=== PATIENT | female | born 1990 | race Asian ===

== ENCOUNTER 2020-06-08 18:15 | Inpatient (IN) ==
[2020-06-08] MEDS ORDERED: Lactated Ringers 1000 ml BAG 1,000 ML IV ONE (19:33)
[2020-06-08] MEDS ORDERED: Dinoprostone 10 MG VAG.SUPP VAGINAL ONE (19:33)
[2020-06-08] MEDS ORDERED: Buffered Lidocaine 1% SYRIN 1 ml INTRADERM ONE (19:33)
[2020-06-08 20:33] LABS: Urine Benzodiazepine Screen None Detected (None Detect); Urine Cannabinoids Screen None Detected (None Detect); Urine Opiates Screen None Detected (None Detect)
[2020-06-08] MEDS ORDERED: Calcium Carb (TUMS) 500 mg CHEW TAB PO PRN (23:03)
[2020-06-08] MEDS ORDERED: Morphine 10 MG/ML VIAL (1 ml) IV ONE (23:04)
[2020-06-08] MEDS ORDERED: Promethazine INJ(RESTRICTED) 25 MG/ML 1 ml VIAL IV PRN (23:04)
[2020-06-08 23:48] LABS: ABS Eosinophils 0.1 10^3/ul (0-0.6); ABS Lymphocytes 2.5 10^3/ul (1.0-4.8); ABS Monocytes 0.9 10^3/ul (0-0.8); ABS Neutrophils 5.4 10^3/ul (1.5-7.7); Eosinophil % 1.3 %; Hematocrit 32 % (35-47); Hemoglobin 10.3 g/dL (12.0-16.0); Lymphocyte % 27.3 %; Mean Corpuscular HGB Conc 32 g/dL (31-36); Mean Corpuscular Hemoglobin 25 pg (27-31); Mean Corpuscular Volume 76 fL (80-97); Mean Platelet Volume 9.6 fL (7.4-10.4); Platelet Count 242 10^3/uL (150-450); Red Cell Distribution Width 16 % (10-15)
[2020-06-09] MEDS ORDERED: Morphine 10 MG/ML VIAL (1 ml) IV ONE (05:44)
[2020-06-09] MEDS ORDERED: Promethazine INJ(RESTRICTED) 25 MG/ML 1 ml VIAL IV PRN (05:44)
[2020-06-09] MEDS ORDERED: Morphine 10 MG/ML VIAL (1 ml) ONE (05:50)
[2020-06-09] MEDS ORDERED: OBEPIDURAL 250 ML EPIDURAL ONE (09:49)
[2020-06-09] MEDS ORDERED: Sodium Citrate/Citric Acid LIQ 15 ML UDC PO PRN (10:14)
[2020-06-09] MEDS ORDERED: Lactated Ringers 1000 ml BAG 1,000 ML IV ONE (10:14)
[2020-06-09] MEDS: Lactated Ringers 1000 ml BAG 1,000 ML IV SCH ×4 (10:20→20:30)
[2020-06-09] MEDS ORDERED: Lactated Ringers 1000 ml BAG 1,000 ML IV SCH (11:00)
[2020-06-09] MEDS ORDERED: OBEPIDURAL 250 ML EPIDURAL SCH (11:00)
[2020-06-09] MEDS: Oxytocin in LR 20 UNITS/1,000 ML BAG IVPB SCH (11:47)
[2020-06-09 13:21] LABS: Urine Appearance Clear; Urine Bilirubin Negative (Negative); Urine Blood Negative (Negative); Urine Color Yellow; Urine Glucose Negative (Negative); Urine Ketones Negative (Negative); Urine Nitrite Negative (Negative); Urine Protein Negative (Negative); Urine Specific Gravity 1.008 (1.002-1.030); Urine Urobilinogen Negative (Negative)
[2020-06-10] MEDS ORDERED: Sodium Citrate/Citric Acid LIQ 15 ML UDC ONE (02:40)
[2020-06-10] MEDS ORDERED: ceFOXitin 2 GM IVPREMIX 2 GM/50 ML BAG ONE (02:40)
[2020-06-10] MEDS ORDERED: Phenylephrine 40 mcg/mL 10mL (400mcg) SYRINGE ONE ×2 (03:09→04:13)
[2020-06-10] MEDS ORDERED: Oxytocin 10 UNITS/ML 1 ML VIAL ONE (03:09)
[2020-06-10] MEDS ORDERED: EPHEDrine (Pressors) 50 MG/ML VIAL ONE (03:09)
[2020-06-10] MEDS ORDERED: Ondansetron 4 mg VIAL 2 MG/ML 2 ml VIAL ONE (03:09)
[2020-06-10] MEDS ORDERED: Morphine PF AMP (0.5MG/ML) 5 MG/10 ML AMP ONE (03:11)
[2020-06-10] MEDS ORDERED: Bupivacaine-MPF SPINAL 7.5 MG/ML - 2ML AMP ONE (04:00)
[2020-06-10] MEDS ORDERED: Ondansetron 4 mg VIAL 2 MG/ML 2 ml VIAL IV PRN (04:03)
[2020-06-10] MEDS ORDERED: diPHENhydraMINE IV 50 MG/ML 1 ml VIAL (BENADRYL) IV PRN (04:03)
[2020-06-10] MEDS ORDERED: Naloxone 0.4 mg VIAL 0.4 mg/ml 1 ml VIAL IV PRN (04:03)
[2020-06-10] MEDS ORDERED: Acetaminophen IV 1 GM/100ML 100 ML IVPB PRN (04:05)
[2020-06-10] MEDS ORDERED: Midazolam 2 mg/2 ml VIAL 1 mg/ml 2 ml VIAL (2 mg) ONE (04:15)
[2020-06-10] MEDS ORDERED: Acetaminophen IV 1 GM/100ML 100 ML ONE (04:42)
[2020-06-10] MEDS: Oxytocin in LR 20 UNITS/1,000 ML BAG IVPB SCH (07:01)
[2020-06-10] MEDS ORDERED: Glycerin ADULT 2.4 gm SUPP PR PRN (13:41)
[2020-06-10] MEDS ORDERED: Dibucaine 1% OINT 28.35 GM TUBE PR PRN (13:41)
[2020-06-10] MEDS ORDERED: Witch Hazel PAD JAR TOPICAL PRN (13:41)
[2020-06-10] MEDS ORDERED: Lactated Ringers 1000 ml BAG 1,000 ML IV SCH (14:00)
[2020-06-10] MEDS ORDERED: Oxytocin in LR 20 UNITS/1,000 ML BAG IVPB SCH (14:00)
[2020-06-11 06:22] LABS: ABS Eosinophils 0.2 10^3/ul (0-0.6); ABS Lymphocytes 2.1 10^3/ul (1.0-4.8); ABS Monocytes 1.3 10^3/ul (0-0.8); ABS Neutrophils 11.4 10^3/ul (1.5-7.7); Eosinophil % 1.3 %; Hematocrit 24 % (35-47); Hemoglobin 7.7 g/dL (12.0-16.0); Mean Corpuscular HGB Conc 32 g/dL (31-36); Mean Corpuscular Hemoglobin 24 pg (27-31); Mean Corpuscular Volume 76 fL (80-97); Mean Platelet Volume 9.6 fL (7.4-10.4); Platelet Count 176 10^3/uL (150-450); Red Blood Count 3.15 10^6 /uL (3.70-4.87); Red Cell Distribution Width 16 % (10-15)
[2020-06-12 08:33] VITALS: BP 106/60
== END 2020-06-12 13:30 | disposition home or self-care (01) | DRG 786 ==
LOC: MCHOBOUT 18:15 → MCHOB 19:36
PROVIDERS: ADMIT Midwife; ATTEND Obstetrics & Gynecology